=== PATIENT | male | born 1965 | race Caucasian/White ===

== ENCOUNTER 2022-05-12 06:05 | Emergency (ER) | payer OTHER ==
[2022-05-12 06:22] VITALS: BP 173/101
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
[2022-05-12] MEDS: KETOROLAC 30 MG/ML VIAL IM STA (06:50)
[2022-05-12] MEDS: methocarbamoL 500 MG TABLET PO STA (06:50)
[2022-05-12] MEDS: BACITRACIN ZINC OINT 1 PACKET TOP STA (06:57)
== END 2022-05-12 07:00 | disposition home or self-care (01) ==
LOC: ED 06:05
DX: M54.2 Cervicalgia (principal); M54.6 Pain in thoracic spine; V49.9XXA Car occupant (driver) (passenger) injured in unspecified traffic accident, initial encounter
CPT/HCPCS: 96374; 99281; 99283; A9270